=== PATIENT | male | born 1980 | race African-American/Black ===

== ENCOUNTER 2017-06-26 13:50 | Inpatient (IN) | payer OTHER ==
[~2017-06-26] VITALS: Ht 177.8 cm; Wt 72.6 kg
[2017-06-26] VITALS (7 sets, daily range): BP systolic 99–176; BP diastolic 55–96; PULSE 94–107; RESP 12–22; TEMP 98–98.4; O2SAT 98–100
[~2017-06-26 13:50] MED LIST: ERYT250 PO; GLIP5 PO; GLUCTAB PO; OMPR20CCR PO; PROC10TA4 PO; ZOFR4TAB3 PO
[2017-06-26 15:18] LABS: ALBUMIN 3.4 GM/DL (3.4-5.0); ALKALINE PHOSPHATASE 93 U/L (45-117); ALT (GPT) 24 U/L (12-78); AST (GOT) 19 U/L (15-37); BLOOD UREA NITROGEN 25 MG/DL (7-18); CALCIUM 8.9 MG/DL (8.5-10.1); CHLORIDE 101 MEQ/L (98-107); CREATININE 0.94 MG/DL (0.60-1.30); GLOMERULAR FILTRATION RATE 108 ML/MIN (>89); LIPASE 58 U/L (73-393); SODIUM (NA) 136 MEQ/L (136-145); TOTAL BILIRUBIN ADULT 0.5 MG/DL (0.2-1.0); TOTAL PROTEIN 8.2 GM/DL (6.4-8.2)
[2017-06-26 15:21] LABS: GLUCOSE,RANDOM 480 MG/DL (74-106)
[2017-06-26 15:26] LABS: HEMATOCRIT 39.3 % (39.0-51.0); HEMOGLOBIN 13.3 GM/DL (13.0-17.0); MEAN CELL VOLUME 85.5 FL (80.0-100.0); MEAN CORPUSCULAR HEMOGLOBIN 28.9 PG (27.0-34.0); MEAN CORPUSCULAR HGB CONC 33.8 % (32.0-36.0); MEAN PLATELET VOLUME 9.3 FL (7.0-11.0); PLATELET COUNT 302 TH/MM3 (150-450); RED BLOOD COUNT 4.59 MIL/MM3 (4.50-5.90); RED CELL DISTRIBUTION WIDTH 12.5 % (11.6-17.2); WHITE BLOOD COUNT 24.3 TH/MM3 (4.0-11.0)
[2017-06-26 16:05] LABS: BANDS 16 % (0-6); LYMPHOCYTES 3 % (9-44); MONOCYTES 2 % (0-8); NEUTROPHIL # MANUAL DIFF 23.1 TH/MM3 (1.8-7.7); POLYS (SEG NEUTROPHILS) 79 % (16-70)
[2017-06-26] MEDS ORDERED: METF500T PO (16:24)
[2017-06-26] MEDS ORDERED: SODIUM CHLOR 0.9% 1000 ML INJ 1,000 ML IV ONE ×2 (16:30)
[2017-06-26] MEDS ORDERED: LOPERAMIDE HCL 2 MG CAP PO ONE (16:45)
[2017-06-26] MEDS ORDERED: ONDANSETRON HCL 4 MG/2 ML VIAL IV PUSH ONE (16:45)
[2017-06-26] MEDS: DEXT 5%-NACL 0.9% 1000 ML INJ 1,000 ML IV SCH ×2 (17:43→21:02)
[2017-06-26] MEDS ORDERED: INSULIN HUMAN REGULAR 1,000 UNITS/10 ML VIAL IV PUSH ONE (17:45)
[2017-06-26] MEDS ORDERED: SODIUM PHOSPHATE INJ 15 MMOL in SODIUM CHLORIDE 0.9% INJ 100 ML IV PRN (17:45)
[2017-06-26] MEDS ORDERED: POTASSIUM CHLOR 40 MEQ PREMIX 100 ML IV PRN ×2 (17:45)
[2017-06-26] MEDS ORDERED: SODIUM BICARBONATE 8.4% SOLN 50 MEQ/50 ML VIAL IV PUSH PRN ×2 (17:45)
[2017-06-26] MEDS ORDERED: INSULIN REGULAR (IV INFUSION) 100 UNITS in SODIUM CHLORIDE 0.9% INJ 99 ML IV PRN (17:45)
[2017-06-26] MEDS ORDERED: POTASSIUM CHLOR 20 MEQ PREMIX 100 ML IV PRN ×6 (17:45)
[2017-06-26] MEDS ORDERED: SODIUM CHLORIDE 0.9% FLUSH 10 ML FLUSH IV FLUSH PRN (18:45)
[2017-06-26] MEDS ORDERED: BISACODYL 10 MG SUPP RECTAL PRN (18:45)
[2017-06-26] MEDS ORDERED: NALOXONE HCL 0.4 MG/ML AMP IV PUSH PRN (18:45)
[2017-06-26] MEDS ORDERED: LACTULOSE SYRUP 20 GM/30 ML CUP PO PRN (18:45)
[2017-06-26] MEDS: SODIUM CHLOR 0.9% 1000 ML INJ 1,000 ML IV SCH ×3 (18:48→22:13)
--- NOTE | 2017-06-26 18:52 | PD ---
HPI Chief Complaint: GI Complaint Time Seen by Provider: 16:23 Travel History International Travel<30 days: No Contact w/Intl Traveler<30days: No Traveled to known affect area: No History of Present Illness HPI Is a 37-year-old man who presents to the emergency department with nausea vomiting diarrhea, fevers. He's been having shakes and chills all week. No definite fevers. She would nausea vomiting and diarrhea today. Some mild abdominal pain. History of diabetes. His only on metformin now. Denies any other associated symptoms. No other complaints. History Past Medical History Narrative Medical Diabetes Past Surgical History Surgical History: No Previous Surgery Social History Alcohol Use: No Tobacco Use: No Allergies-Medications (Allergen,Severity, Reaction): Coded Allergies: No Known Allergies (Unverified Allergy, Unknown, 06/26/17) Reported Meds & Prescriptions Reported Meds & Active Scripts Active Review of Systems Except as stated in HPI: all other systems reviewed are Neg Physical Exam Narrative GENERAL: 37 year-old man, looks a little bit ill but nontoxic. SKIN: Focused skin assessment warm/dry. HEAD: Atraumatic. Normocephalic. EYES: Pupils equal and round. No scleral icterus. No injection or drainage. ENT: No nasal bleeding or discharge. Mucous membranes pink and moist. NECK: Trachea midline. No JVD. CARDIOVASCULAR: Heart rate rapid. No murmurs. RESPIRATORY: No accessory muscle use. Clear to auscultation. Breath sounds equal bilaterally. GASTROINTESTINAL: Abdomen is flat and soft. No significant tenderness. MUSCULOSKELETAL: No obvious deformities. No clubbing. No cyanosis. No edema. NEUROLOGICAL: Awake and alert. No obvious cranial nerve deficits. Motor grossly within normal limits. Normal speech. PSYCHIATRIC: Appropriate mood and affect; insight and judgment normal. Data Data Last Documented VS Vital Signs Date Time Temp Pulse Resp B/P (MAP) Pulse Ox O2 Delivery O2 Flow Rate FiO2 06/26/17 16:30 94 12 176/96 (122) 98 Room Air 06/26/17 13:52 98.4 Orders Orders Complete Blood Count With Diff (06/26/17 13:58) Comprehensive Metabolic Panel (06/26/17 13:58) Lipase (06/26/17 13:58) Blood Gas Venous (Vbg) (06/26/17 16:24) Beta Hydroxybutyrate (Acetone) (06/26/17 16:24) Sodium Chlor 0.9% 1000 Ml Inj (Ns 1000 M (06/26/17 16:30) Sodium Chlor 0.9% 1000 Ml Inj (Ns 1000 M (06/26/17 16:30) Loperamide (Imodium) (06/26/17 16:45) Ondansetron Inj (Zofran Inj) (06/26/17 16:45) Liquefied Natural Gas Plant Operator / Telemetry [id number] (06/26/17 17:43) ^ Insert Iv (06/26/17 17:43) Diet Npo (06/26/17 Dinner) Sodium Chlor 0.9% 1000 Ml Inj (Ns 1000 M (06/26/17 17:43) Dext 5%-Nacl 0.9% 1000 Ml Inj (D5w-Ns 10 (06/26/17 17:43) Insulin Human Regular Inj (Novolin R Inj (06/26/17 17:45) Insulin Regular (Iv Infusion) (Novolin R (06/26/17 17:45) Potassium Chlor 40 Meq Premix (Kcl 40 Me (06/26/17 17:45) Potassium Chlor 40 Meq Premix (Kcl 40 Me (06/26/17 17:45) Potassium Chlor 20 Meq Premix (Kcl 20 Me (06/26/17 17:45) Potassium Chlor 20 Meq Premix (Kcl 20 Me (06/26/17 17:45) Potassium Chlor 20 Meq Premix (Kcl 20 Me (06/26/17 17:45) Potassium Chlor 20 Meq Premix (Kcl 20 Me (06/26/17 17:45) Potassium Chlor 20 Meq Premix (Kcl 20 Me (06/26/17 17:45) Potassium Chlor 20 Meq Premix (Kcl 20 Me (06/26/17 17:45) Sodium Bicarbonate 8.4% Inj (Sodium Bica (06/26/17 17:45) Sodium Bicarbonate 8.4% Inj (Sodium Bica (06/26/17 17:45) Sodium Phosphate Inj (Sodium Phosphate I (06/26/17 17:45) Hemoglobin (Hgb) A1c (06/26/17 17:43) Urinalysis - C+S If Indicated (06/26/17 17:43) Basic Metabolic Panel (Bmp) (06/26/17 22:43) Basic Metabolic Panel (Bmp) (06/27/17 04:43) Basic Metabolic Panel (Bmp) (06/27/17 10:43) Basic Metabolic Panel (Bmp) (06/27/17 16:43) Magnesium (Mg) (06/26/17 22:43) Magnesium (Mg) (06/27/17 04:43) Magnesium (Mg) (06/27/17 10:43) Magnesium (Mg) (06/27/17 16:43) Phosphorus (Po4) (06/26/17 22:43) Phosphorus (Po4) (06/27/17 04:43) Phosphorus (Po4) (06/27/17 10:43) Phosphorus (Po4) (06/27/17 16:43) Beta Hydroxybutyrate (Acetone) (06/27/17 04:43) Beta Hydroxybutyrate (Acetone) (06/27/17 16:43) Admit Order (Ed Use Only) (06/26/17 ) Labs Laboratory Tests Test 06/26/17 14:17 06/26/17 16:25 06/26/17 16:39 White Blood Count 24.3 TH/MM3 Red Blood Count 4.59 MIL/MM3 Hemoglobin 13.3 GM/DL Hematocrit 39.3 % Mean Corpuscular Volume 85.5 FL Mean Corpuscular Hemoglobin 28.9 PG Mean Corpuscular Hemoglobin Concent 33.8 % Red Cell Distribution Width 12.5 % Platelet Count 302 TH/MM3 Mean Platelet Volume 9.3 FL CBC Comment AUTO DIFF Differential Total Cells Counted 100 Neutrophils % (Manual) 79 % Band Neutrophils % 16 % Lymphocytes % 3 % Monocytes % 2 % Neutrophils # (Manual) 23.1 TH/MM3 Differential Comment FINAL DIFF MANUAL Platelet Morphology Comment NORMAL Blood Urea Nitrogen 25 MG/DL Creatinine 0.94 MG/DL Random Glucose 480 MG/DL Total Protein 8.2 GM/DL Albumin 3.4 GM/DL Calcium Level 8.9 MG/DL Alkaline Phosphatase 93 U/L Aspartate Amino Transf (AST/SGOT) 19 U/L Alanine Aminotransferase (ALT/SGPT) 24 U/L Total Bilirubin 0.5 MG/DL Sodium Level 136 MEQ/L Potassium Level 4.5 MEQ/L Chloride Level 101 MEQ/L Carbon Dioxide Level 20.0 MEQ/L Anion Gap 15 MEQ/L Estimat Glomerular Filtration Rate 108 ML/MIN Lipase 58 U/L B-Hydroxybutyrate 5.10 MMOL/L Blood Gas Puncture Site IV Blood Gas Patient Temperature 98.6 Venous Blood pH 7.29 Venous Blood Partial Pressure CO2 39 mmHg Venous Blood Partial Pressure O2 47 mmHg Venous Blood HCO3 18 mmol/L Venous Blood Oxygen Saturation 71 % Venous Blood Oxygen Content 13.3 Vol % Venous Blood Base Excess -7.1 mmol/L Oxygen Delivery Device ROOM AIR Blood Gas Inspired Oxygen 21 % MDM Medical Decision Making Medical Screen Exam Complete: Yes Emergency Medical Condition: Yes Interpretation(s) Laboratory Tests Test 06/26/17 14:17 06/26/17 16:25 06/26/17 16:39 White Blood Count 24.3 TH/MM3 Red Blood Count 4.59 MIL/MM3 Hemoglobin 13.3 GM/DL Hematocrit 39.3 % Mean Corpuscular Volume 85.5 FL Mean Corpuscular Hemoglobin 28.9 PG Mean Corpuscular Hemoglobin Concent 33.8 % Red Cell Distribution Width 12.5 % Platelet Count 302 TH/MM3 Mean Platelet Volume 9.3 FL CBC Comment AUTO DIFF Differential Total Cells Counted 100 Neutrophils % (Manual) 79 % Band Neutrophils % 16 % Lymphocytes % 3 % Monocytes % 2 % Neutrophils # (Manual) 23.1 TH/MM3 Differential Comment FINAL DIFF MANUAL Platelet Morphology Comment NORMAL Blood Urea Nitrogen 25 MG/DL Creatinine 0.94 MG/DL Random Glucose 480 MG/DL Total Protein 8.2 GM/DL Albumin 3.4 GM/DL Calcium Level 8.9 MG/DL Alkaline Phosphatase 93 U/L Aspartate Amino Transf (AST/SGOT) 19 U/L Alanine Aminotransferase (ALT/SGPT) 24 U/L Total Bilirubin 0.5 MG/DL Sodium Level 136 MEQ/L Potassium Level 4.5 MEQ/L Chloride Level 101 MEQ/L Carbon Dioxide Level 20.0 MEQ/L Anion Gap 15 MEQ/L Estimat Glomerular Filtration Rate 108 ML/MIN Lipase 58 U/L B-Hydroxybutyrate 5.10 MMOL/L Blood Gas Puncture Site IV Blood Gas Patient Temperature 98.6 Venous Blood pH 7.29 Venous Blood Partial Pressure CO2 39 mmHg Venous Blood Partial Pressure O2 47 mmHg Venous Blood HCO3 18 mmol/L Venous Blood Oxygen Saturation 71 % Venous Blood Oxygen Content 13.3 Vol % Venous Blood Base Excess -7.1 mmol/L Oxygen Delivery Device ROOM AIR Blood Gas Inspired Oxygen 21 % Differential Diagnosis DKA, hyperglycemia, infection, other Narrative Course Medical decision making 37-year-old man who has nausea vomiting diarrhea, loose watery stools, with elevated blood sugar. Labs are suggestive of mild DKA. This is likely sequela of gastroenteritis, dehydration, possibly medication noncompliance. Patient's only on metformin, is been diagnosed with insulin-dependent diabetes. Looks overall well. We'll plan IV fluids, insulin, DKA protocol. Spoke with Dr. Cardenas, will admit patient. Diagnosis Primary Impression: DKA (diabetic ketoacidoses) Admitting Information Admitting Physician Requests: Admit Kerwin Dumont MD Jun 26, 2017 18:52
--- NOTE | 2017-06-26 18:56 | HHI.HP ---
HPI Service [facility] Hospitalists Primary Care Physician Zaira Anglin MD Admission Diagnosis mild DKA Chief Complaint: persistent vomiting ,abdominal pain all day Travel History International Travel<30 Days: No Contact w/Intl Traveler <30 Da: No Traveled to Known Affected Are: No History of Present Illness 37 y/o black male with history of diabetes was on metformin but non complaint and stopped med months ago ,previous to that was on Lantus ,patient states has been doing well but has had gastroparesis symptoms and chronic diarrhea ,came to er with persistent vomit and had blood glucose at 400 with mild DKA on lab work and will be admitted start on insulin drip and IV fluid ,patient also has elevated WBC count ,denies fever. Review of Systems Gastrointestinal: COMPLAINS OF: Abdominal pain, Nausea, Vomiting Past Family Social History Past Medical History diabetes ,gastroparesis diarrhea Past Surgical History none Reported Medications none stopped his metformin Allergies: Coded Allergies: No Known Allergies (Unverified Allergy, Unknown, 06/26/17) Social History NS, did drink in past none over 1 year Physical Exam Vital Signs Vital Signs Date Time Temp Pulse Resp B/P (MAP) Pulse Ox O2 Delivery O2 Flow Rate FiO2 06/26/17 16:30 94 12 176/96 (122) 98 Room Air 06/26/17 13:52 98.4 100 20 170/76 (107) 100 Room Air Physical Exam GENERAL: This is a well-nourished, well-developed patient, in no apparent distress. SKIN: No rashes, ecchymoses or lesions. Cool and dry. HEAD: Atraumatic. Normocephalic. No temporal or scalp tenderness. EYES: Pupils equal round and reactive. Extraocular motions intact. No scleral icterus. No injection or drainage. ENT: Nose without bleeding, purulent drainage or septal hematoma. Throat without erythema, tonsillar hypertrophy or exudate. Uvula midline. Airway patent. NECK: Trachea midline. No JVD or lymphadenopathy. Supple, nontender, no meningeal signs. CARDIOVASCULAR: Regular rate and rhythm without murmurs, gallops, or rubs. RESPIRATORY: Clear to auscultation. Breath sounds equal bilaterally. No wheezes , rales, or rhonchi. GASTROINTESTINAL: Abdomen soft, non-tender, nondistended. No hepato-splenomegaly , or palpable masses. No guarding. MUSCULOSKELETAL: Extremities without clubbing, cyanosis, or edema. No joint tenderness, effusion, or edema noted. No calf tenderness. Negative Homans sign bilaterally. NEUROLOGICAL: Awake and alert. Cranial nerves II through XII intact. Motor and sensory grossly within normal limits. Five out of 5 muscle strength in all muscle groups. Normal speech. Laboratory Laboratory Tests Test 06/26/17 14:17 06/26/17 16:25 06/26/17 16:39 White Blood Count 24.3 Red Blood Count 4.59 Hemoglobin 13.3 Hematocrit 39.3 Mean Corpuscular Volume 85.5 Mean Corpuscular Hemoglobin 28.9 Mean Corpuscular Hemoglobin Concent 33.8 Red Cell Distribution Width 12.5 Platelet Count 302 Mean Platelet Volume 9.3 CBC Comment AUTO DIFF Differential Total Cells Counted 100 Neutrophils % (Manual) 79 Band Neutrophils % 16 Lymphocytes % 3 Monocytes % 2 Neutrophils # (Manual) 23.1 Differential Comment FINAL DIFF MANUAL Platelet Morphology Comment NORMAL Blood Urea Nitrogen 25 Creatinine 0.94 Random Glucose 480 Total Protein 8.2 Albumin 3.4 Calcium Level 8.9 Alkaline Phosphatase 93 Aspartate Amino Transf (AST/SGOT) 19 Alanine Aminotransferase (ALT/SGPT) 24 Total Bilirubin 0.5 Sodium Level 136 Potassium Level 4.5 Chloride Level 101 Carbon Dioxide Level 20.0 Anion Gap 15 Estimat Glomerular Filtration Rate 108 Lipase 58 B-Hydroxybutyrate 5.10 Blood Gas Puncture Site IV Blood Gas Patient Temperature 98.6 Venous Blood pH 7.29 Venous Blood Partial Pressure CO2 39 Venous Blood Partial Pressure O2 47 Venous Blood HCO3 18 Venous Blood Oxygen Saturation 71 Venous Blood Oxygen Content 13.3 Venous Blood Base Excess -7.1 Oxygen Delivery Device ROOM AIR Blood Gas Inspired Oxygen 21 Result Diagram: 06/26/17 1417 06/26/17 1417 Course in er started on iv fluid and insulin drip Caprini VTE Risk Assessment Caprini VTE Risk Assessment: No/Low Risk (score <= 1) Caprini Risk Assessment Model Point Value = 1 Point Value = 2 Point Value = 3 Point Value = 5 Age 41-60 Minor surgery BMI > 25 kg/m2 Swollen legs Varicose veins or History of unexplained or recurrent spontaneous Oral contraceptives or hormone replacement Sepsis (< 1 month) Serious lung disease, including pneumonia (< 1 month) Abnormal pulmonary function Acute myocardial infarction Congestive heart failure (< 1 month) History of inflammatory bowel disease Medical patient at bed rest Age 61-74 Arthroscopic surgery Major open surgery (> 45 min) Laparoscopic surgery (> 45 min) Malignancy Confined to bed (> 72 hours) Immobilizing plaster cast Central venous access Age >= 75 History of VTE Family history of VTE Factor V Leiden Prothrombin [id number] Lupus anticoagulant Anticardiolipin antibodies Elevated serum homocysteine Heparin-induced thrombocytopenia Other congenital or acquired thrombophilia Stroke (< 1 month) Elective arthroplasty Hip, pelvis, or leg fracture Acute spinal cord injury (< 1 month) Prophylaxis Regimen Total Risk Factor Score Risk Level Prophylaxis Regimen 0-1 Low Early ambulation 2 Moderate Order ONE of the following: *Sequential Compression Device (SCD) *Heparin 5000 units SQ BID 3-4 Higher Order ONE of the following medications: *Heparin 5000 units SQ TID *Enoxaparin/Lovenox 40 mg SQ daily (WT < 150 kg, CrCl > 30 mL/min) *Enoxaparin/Lovenox 30 mg SQ daily (WT < 150 kg, CrCl > 10-29 mL/min) *Enoxaparin/Lovenox 30 mg SQ BID (WT < 150 kg, CrCl > 30 mL/min) AND/OR *Sequential Compression Device (SCD) 5 or more Highest Order ONE of the following medications: *Heparin 5000 units SQ TID (Preferred with Epidurals) *Enoxaparin/Lovenox 40 mg SQ daily (WT < 150 kg, CrCl > 30 mL/min) *Enoxaparin/Lovenox 30 mg SQ daily (WT < 150 kg, CrCl > 10-29 mL/min) *Enoxaparin/Lovenox 30 mg SQ BID (WT < 150 kg, CrCl > 30 mL/min) AND *Sequential Compression Device (SCD) Assessment and Plan Problem List: (1) DKA (diabetic ketoacidoses) ICD Codes: E13.10 - Other specified diabetes mellitus with ketoacidosis without coma Status: Acute Plan[place] [facility] [place] and IV fluids (2) Nausea & vomiting ICD Codes: R11.2 - Nausea & vomiting Status: Acute Plan: zofran add protonix IV (3) Leukocytosis ICD Codes: D72.829 - Elevated white blood cell count, unspecified Plan: may be related to DKA will recheck labs start on zoysn for now blood cultures ordered chest xray ordered non contrast CT abdomen Assessment and Plan further plan as case develops Code Status full Discussed Condition With patient Physician Certification 2 Midnight Certification Type: Admission for Inpatient Services Order for Inpatient Services The services are ordered in accordance with Medicare regulations or non- Medicare payer requirements, as applicable. In the case of services not specified as inpatient-only, they are appropriately provided as inpatient services in accordance with the 2-midnight benchmark. Estimated LOS (days): 3 3 days is the estimated time the patient will need to remain in the hospital, assuming treatment plan goals are met and no additional complications. Post-Hospital Plan: Home Eduar Cardenas MD Jun 26, 2017 18:55
--- NOTE | 2017-06-26 19:45 | RADRPT ---
EXAM DATE/TIME: 06/26/2017 19:05 [facility] COMPARISON: CT ABDOMEN & PELVIS W CONTRAST, January 26, 2015, 19:03. INDICATIONS : Vomiting,diarrhea today ORAL CONTRAST: No oral contrast ingested. RADIATION DOSE: 6.64 CTDIvol (mGy) MEDICAL HISTORY : Diabetes SURGICAL HISTORY : None. ENCOUNTER: Initial ACUITY: 1 day PAIN SCALE: 0/10 LOCATION: abdomen TECHNIQUE: Volumetric scanning of the abdomen and pelvis was performed. Using automated exposure control and adjustment of the mA and/or kV according to patient size, radiation dose was kept as low as reasonably achievable to obtain optimal diagnostic quality images. DICOM format image data is av ailable electronically for review and comparison. FINDINGS: CT Abdomen: The liver, spleen, pancreas, kidneys, adrenals are unremarkable. There is no evidence for any appreciable pathological adenopathy, free fluid, or bowel obstruction. There is no evidence for any stones in the kidneys or the course of the ureters on either side. There is no hydronephrosis. CT pelvis: There is no evidence for mass, abscess formation, or any significant adenopathy within the pelvis. CONCLUSION: Essentially unremarkable study. Sydni Schaefer MD on June 26, 2017 at 19:39 Board Certified Radiologist. This report was verified electronically.
[2017-06-26] MEDS: PIPERACIL-TAZO 3.375 GM PREMIX 50 ML IV SCH (20:50)
[2017-06-26] MEDS: PROCHLORPERAZINE INJ 10 MG/2 ML VIAL IV PUSH PRN (20:55)
[2017-06-26] MEDS: SODIUM CHLORIDE 0.9% FLUSH 10 ML FLUSH IV FLUSH SCH (21:00)
[2017-06-26] MEDS ORDERED: SENNOSIDES 8.6 MG TAB PO PRN (21:00)
[2017-06-26] MEDS ORDERED: MAGNESIUM HYDROXIDE SUSP 30 ML CUP PO PRN (21:00)
[2017-06-26] MEDS: PANTOPRAZOLE SODIUM 40 MG VIAL IV PUSH SCH (21:00)
[2017-06-26] MEDS: DOCUSATE SODIUM 50 MG/SENNA 8.6 MG TAB PO SCH (21:00)
[2017-06-26 21:55] LABS: BILIRUBIN, URINE NEG (NEG); BLOOD, URINE TRACE (NEG); GLUCOSE,URINE 1000 mg/dL (NEG); KETONE, URINE 80 mg/dL (NEG); NITRITE,URINE NEG (NEG); PH, URINE 5.5 (5.0-8.5); URINE COLOR LIGHT-YELLOW (YELLW/STRAW); URINE LEUKOCYTE ESTERASE NEG (NEG)
[2017-06-26] MEDS ORDERED: ONDANSETRON HCL 4 MG/2 ML VIAL IVP PRN (23:00)
[2017-06-26] MEDS ORDERED: CHLORHEXIDINE GLUCONATE 2 % 1 PACK (2 CLOTHS)(extra cloths) TOPICAL PRN (23:15)
[2017-06-26] MEDS: CHLORHEXIDINE GLUCONATE 2 % 1 PACK (2 CLOTHS)(taper/protocol) TOPICAL SCH (23:18)
[2017-06-27] VITALS (12 sets, daily range): BP systolic 111–136; BP diastolic 62–81; PULSE 80–101; RESP 16–24; TEMP 97–98.5; O2SAT 97–100
[2017-06-27 00:45] LABS: BICARBONATE 25.1 MEQ/L (21.0-32.0); BLOOD UREA NITROGEN 23 MG/DL (7-18); CHLORIDE 114 MEQ/L (98-107); CREATININE 0.88 MG/DL (0.60-1.30); GLOMERULAR FILTRATION RATE 117 ML/MIN (>89); GLUCOSE,RANDOM 177 MG/DL (74-106); MAGNESIUM 1.8 MG/DL (1.5-2.5); PHOSPHORUS 1.7 MG/DL (2.5-4.9); SODIUM (NA) 146 MEQ/L (136-145)
[2017-06-27] MEDS: DEXT 5%-NACL 0.9% 1000 ML INJ 1,000 ML IV SCH (01:23)
[2017-06-27] MEDS: SODIUM CHLOR 0.9% 1000 ML INJ 1,000 ML IV SCH (01:23)
[2017-06-27] MEDS: PIPERACIL-TAZO 3.375 GM PREMIX 50 ML IV SCH ×4 (01:24→19:43)
[2017-06-27] MEDS ORDERED: GLUCAGON 1 MG/ML VIAL OTHER PRN (01:45)
[2017-06-27] MEDS ORDERED: DEXTROSE 50% IN WATER 50 ML VIAL(D50) IV PUSH PRN (01:45)
[2017-06-27] MEDS ORDERED: INSULIN DETEMIR 100 UNITS/ML VIAL SQ ONE (01:45)
[2017-06-27] MEDS: MEDIUM DOSE INSULIN NOVOLOG SUPPLEMENTAL SCALE SQ SCH ×6 (02:00→22:20)
[2017-06-27 05:44] LABS: HEMATOCRIT 33.5 % (39.0-51.0); HEMOGLOBIN 11.3 GM/DL (13.0-17.0); MEAN CELL VOLUME 84.7 FL (80.0-100.0); MEAN CORPUSCULAR HEMOGLOBIN 28.6 PG (27.0-34.0); MEAN CORPUSCULAR HGB CONC 33.7 % (32.0-36.0); MEAN PLATELET VOLUME 9.4 FL (7.0-11.0); PLATELET COUNT 261 TH/MM3 (150-450); RED BLOOD COUNT 3.95 MIL/MM3 (4.50-5.90); RED CELL DISTRIBUTION WIDTH 12.9 % (11.6-17.2); WHITE BLOOD COUNT 20.7 TH/MM3 (4.0-11.0)
[2017-06-27 06:09] LABS: BICARBONATE 21.7 MEQ/L (21.0-32.0); CALCIUM 7.9 MG/DL (8.5-10.1); CREATININE 0.69 MG/DL (0.60-1.30); MAGNESIUM 1.8 MG/DL (1.5-2.5); PHOSPHORUS 2.9 MG/DL (2.5-4.9)
[2017-06-27 07:21] LABS: BANDS 5 % (0-6); LYMPHOCYTES 5 % (9-44); MONOCYTES 3 % (0-8); POLYS (SEG NEUTROPHILS) 87 % (16-70)
[2017-06-27] MEDS: DOCUSATE SODIUM 50 MG/SENNA 8.6 MG TAB PO SCH ×2 (08:50→19:43)
[2017-06-27] MEDS: SODIUM CHLORIDE 0.9% FLUSH 10 ML FLUSH IV FLUSH SCH ×2 (08:50→19:43)
--- NOTE | 2017-06-27 10:33 | RADRPT ---
EXAM DATE/TIME: 06/27/2017 09:46 [facility] COMPARISON: No previous studies available for comparison. INDICATIONS : Cough, no shortness of breath, no chest pain, nausea and vomiting MEDICAL HISTORY : diabetes SURGICAL HISTORY : None. ENCOUNTER: Subsequent ACUITY: 1 day PAIN SCORE: 0/10 LOCATION: Bilateral chest FINDINGS: A single view of the chest demonstrates the lungs to be symmetrically aerated without evidence of mas s, infiltrate or effusion. The cardiomediastinal contours are unremarkable. Osseous structures are intact. CONCLUSION: 1. No acute cardiopulmonary disease. Francis Woodson MD on June 27, 2017 at 10:29 Board Certified Radiologist. This report was verified electronically.
[2017-06-27 13:08] LABS: BICARBONATE 23.4 MEQ/L (21.0-32.0); CALCIUM 8.3 MG/DL (8.5-10.1); CREATININE 0.79 MG/DL (0.60-1.30); MAGNESIUM 1.8 MG/DL (1.5-2.5)
[2017-06-27 13:10] LABS: PHOSPHORUS 2.1 MG/DL (2.5-4.9)
[2017-06-27 16:06] LABS: HEMOGLOBIN A1C 14.8 % (4.3-6.0)
[2017-06-27 17:55] LABS: ALBUMIN 2.5 GM/DL (3.4-5.0); BICARBONATE 26.3 MEQ/L (21.0-32.0); BLOOD UREA NITROGEN 21 MG/DL (7-18); CALCIUM 8.1 MG/DL (8.5-10.1); CHLORIDE 111 MEQ/L (98-107); CREATININE 0.74 MG/DL (0.60-1.30); GLOMERULAR FILTRATION RATE 143 ML/MIN (>89); GLUCOSE,RANDOM 130 MG/DL (74-106); SODIUM (NA) 143 MEQ/L (136-145)
[2017-06-27 17:56] LABS: AST (GOT) 15 U/L (15-37)
[2017-06-27 17:59] LABS: ALKALINE PHOSPHATASE 67 U/L (45-117); ALT (GPT) 17 U/L (12-78); TOTAL BILIRUBIN ADULT 0.2 MG/DL (0.2-1.0); TOTAL PROTEIN 6.5 GM/DL (6.4-8.2)
--- NOTE | 2017-06-27 19:28 | HHI.PR ---
Subjective Remarks No new complaints. Pt eager for discharge out of the ICU. Further d/w pt. He has NOT been compliant with outpt DM regimen. Objective Vitals Vital Signs Date Time Temp Pulse Resp B/P (MAP) Pulse Ox O2 Delivery O2 Flow Rate FiO2 06/27/17 17:00 84 21 111/74 (86) 06/27/17 16:00 97.5 82 17 114/72 (86) 06/27/17 15:00 80 16 134/74 (94) 06/27/17 12:00 97.5 93 20 119/71 (87) 98 06/27/17 08:00 98.5 101 20 125/65 (85) 97 06/27/17 06:00 96 06/27/17 04:00 98 06/27/17 04:00 98.0 101 24 120/80 (93) 98 06/27/17 04:00 101 06/27/17 02:00 88 06/27/17 00:00 88 06/27/17 00:00 98.0 88 21 119/62 (81) 98 06/26/17 23:50 99 06/26/17 22:00 99 06/26/17 21:33 98.0 107 22 99/55 (70) 98 06/26/17 20:34 06/26/17 19:56 106 16 130/70 (90) 99 Room Air 06/27/17 06/27/17 06/28/17 15:00 23:00 07:00 Intake Total 100 ml 900 ml Output Total 500 ml Balance 100 ml 400 ml Intake Oral 900 ml IV Total 100 ml Output Urine Total 500 ml Result Diagram: 06/27/17 0423 06/27/17 1647 Imaging Last Impressions Chest X-Ray 06/27/17 0000 Signed Impressions: Service Date/Time: June 09:46 - CONCLUSION: 1. No acute cardiopulmonary disease. Francis Woodson MD Abdomen/Pelvis CT 06/26/17 0000 Signed Impressions: Service Date/Time: Monday, June 26, 2017 19:05 - CONCLUSION: Essentially unremarkable study. Sydni Schaefer MD Objective Remarks GENERAL: This is a well-nourished, well-developed patient, in no apparent distress. CARDIOVASCULAR: Regular rate and rhythm without murmurs, gallops, or rubs. RESPIRATORY: Clear to auscultation. Breath sounds equal bilaterally. No wheezes , rales, or rhonchi. GASTROINTESTINAL: Abdomen soft, non-tender, nondistended. Normal active bowel sounds MUSCULOSKELETAL: Extremities without clubbing, cyanosis, or edema. NEURO: Alert & Oriented x4 to person, place, time, situation. Moves all ext x4 A/P Problem List: (1) DKA (diabetic ketoacidoses) ICD Codes: E13.10 - Other specified diabetes mellitus with ketoacidosis without coma Status: Resolved Plan: - pt off insulin drip (2) Nausea & vomiting ICD Codes: R11.2 - Nausea & vomiting Status: Resolved Plan: zofran add protonix IV (3) Leukocytosis ICD Codes: D72.829 - Elevated white blood cell count, unspecified Plan: - may be related to DKA - No nidus of infection - UA --> no infection - CXR (06/27/16) --> no infiltrate - continue zosyn for now - repeat CBC in AM (4) DM (diabetes mellitus), type 2, uncontrolled ICD Codes: E11.65 - DM (diabetes mellitus), type 2, uncontrolled Status: Acute Plan: - HgA1C 14.8 (06/27/16) - Pt admits to NOT taking his DM medications - resume glucophage at 500mg BID, observe response - SSI - obtain fasting lipid panel in AM - Pt will need f/u with CP PCP, Dr. Anglin, upon discharge - Pt will need outpt referal to [facility] Store Team Leader outpt - obtain consultation with [place] religious educator - DVT prophylaxis with SCDs Problem Qualifiers (1) DKA (diabetic ketoacidoses): Qualified Codes: E11.10 - Type 2 diabetes mellitus with ketoacidosis without coma (2) DM (diabetes mellitus), type 2, uncontrolled: Qualified Codes: E11.8 - Type 2 diabetes mellitus with unspecified complications; E11.65 - Type 2 diabetes mellitus with hyperglycemia Peter Romero DO Jun 27, 2017 19:28
[2017-06-27] MEDS: PANTOPRAZOLE SODIUM 40 MG VIAL IV PUSH SCH (19:42)
[2017-06-27] MEDS: metFORMIN HCL 500 MG TAB PO SCH (19:42)
[2017-06-28] VITALS (9 sets, daily range): BP systolic 112–182; BP diastolic 67–85; PULSE 81–109; RESP 16–22; TEMP 96.6–97.7; O2SAT 92–100
[2017-06-28] MEDS: CHLORHEXIDINE GLUCONATE 2 % 1 PACK (2 CLOTHS)(taper/protocol) TOPICAL SCH (01:35)
[2017-06-28] MEDS: PIPERACIL-TAZO 3.375 GM PREMIX 50 ML IV SCH ×2 (01:58→09:25)
[2017-06-28] MEDS: MEDIUM DOSE INSULIN NOVOLOG SUPPLEMENTAL SCALE SQ SCH ×6 (01:58→20:28)
[2017-06-28 07:43] LABS: AUTOMATED NEUTROPHIL # 8.3 TH/MM3 (1.8-7.7); BASOPHIL % 0.2 % (0.0-2.0); EOSINOPHIL # 0.2 TH/MM3 (0-0.4); EOSINOPHIL % 1.8 % (0.0-4.0); HEMATOCRIT 33.4 % (39.0-51.0); HEMOGLOBIN 11.5 GM/DL (13.0-17.0); LYMPH % 11.4 % (9.0-44.0); LYMPHOCYTE # 1.2 TH/MM3 (1.0-4.8); MEAN CELL VOLUME 84.2 FL (80.0-100.0); MEAN CORPUSCULAR HEMOGLOBIN 28.9 PG (27.0-34.0); MEAN CORPUSCULAR HGB CONC 34.4 % (32.0-36.0); MEAN PLATELET VOLUME 8.3 FL (7.0-11.0); MONO % 6.5 % (0.0-8.0); MONOCYTE # 0.7 TH/MM3 (0-0.9); NEUT % 80.1 % (16.0-70.0); PLATELET COUNT 263 TH/MM3 (150-450); RED BLOOD COUNT 3.96 MIL/MM3 (4.50-5.90); RED CELL DISTRIBUTION WIDTH 12.9 % (11.6-17.2); WHITE BLOOD COUNT 10.4 TH/MM3 (4.0-11.0)
[2017-06-28 08:11] LABS: BICARBONATE 25.5 MEQ/L (21.0-32.0); CALCIUM 8.1 MG/DL (8.5-10.1); CREATININE 0.64 MG/DL (0.60-1.30)
[2017-06-28 08:12] LABS: CHOLESTEROL/ HDL RATIO 4.04 RATIO
[2017-06-28] MEDS: SODIUM CHLORIDE 0.9% FLUSH 10 ML FLUSH IV FLUSH SCH ×2 (09:00→20:15)
[2017-06-28] MEDS: DOCUSATE SODIUM 50 MG/SENNA 8.6 MG TAB PO SCH ×2 (09:00→20:27)
[2017-06-28] MEDS: metFORMIN HCL 500 MG TAB PO SCH ×2 (09:25→18:32)
[2017-06-28] MEDS: PROCHLORPERAZINE INJ 10 MG/2 ML VIAL IV PUSH PRN ×2 (12:32→20:13)
[2017-06-28] MEDS ORDERED: ONDANSETRON HCL 4 MG/2 ML VIAL IVP PRN (14:45)
[2017-06-28] MEDS: NS + KCL 20 MEQ INJ 1,000 ML IV SCH (15:06)
--- NOTE | 2017-06-28 15:13 | HHI.PR ---
Subjective Remarks Pt developed recurrent nausea and vomiting today. Did NOT respond to zofran 4mg. Pt also received compazine with improvement but not complete resolution of n/v. Objective Vitals Vital Signs Date Time Temp Pulse Resp B/P (MAP) Pulse Ox O2 Delivery O2 Flow Rate FiO2 06/28/17 12:00 96.6 82 22 182/84 (116) 92 06/28/17 08:00 96.9 84 20 140/78 (98) 98 06/28/17 04:10 96.8 81 16 117/73 (88) 98 06/28/17 00:15 97.2 83 17 112/67 (82) 100 06/27/17 22:00 96 06/27/17 20:30 97.0 84 16 136/81 (99) 100 06/27/17 19:50 97 06/27/17 17:00 84 21 111/74 (86) 06/27/17 16:00 97.5 82 17 114/72 (86) Result Diagram: 06/28/17 0718 06/28/17 0718 Imaging Last Impressions Chest X-Ray 06/27/17 0000 Signed Impressions: Service Date/Time: June 09:46 - CONCLUSION: 1. No acute cardiopulmonary disease. Francis Woodson MD Abdomen/Pelvis CT 06/26/17 0000 Signed Impressions: Service Date/Time: Monday, June 26, 2017 19:05 - CONCLUSION: Essentially unremarkable study. Sydni Schaefer MD Objective Remarks GENERAL: This is a well-nourished, well-developed patient, in no apparent distress. CARDIOVASCULAR: Regular rate and rhythm without murmurs, gallops, or rubs. RESPIRATORY: Clear to auscultation. Breath sounds equal bilaterally. No wheezes , rales, or rhonchi. GASTROINTESTINAL: Abdomen soft, non-tender, nondistended. Normal active bowel sounds MUSCULOSKELETAL: Extremities without clubbing, cyanosis, or edema. NEURO: Alert & Oriented x4 to person, place, time, situation. Moves all ext x4 A/P Problem List: (1) Nausea & vomiting ICD Codes: R11.2 - Nausea & vomiting Status: Resolved Plan: - pt admitted with c/o n/v, hyperglycemia, possible DKA - blood sugar improved - pt with recurrent n/v (06/28) - Pt has h/o gastroparesis - CT Abd/pelvis (06/28) - obtain STAT lipase - repeat CBC, BMP, LFTs in AM - IVFs - compazine prn - DVT prophylaxis - trial of Erythromycin EC 250mg TID AC, IV erythromycin is currently NOT available review of Jan 2015 Hospitalization - EGD on 01/27/15 --> severe distal esophagitis with linear erosions from severe vomiting, hemorrhagic gastritis just below the GE junction from the retching, mild antral gastritis, mild antral gastritis, no evidence of mechanical obstruction in the stomach or duodenum. - GES (01/29/15) - findings c/w gastroparesis - NO improvement with reglan - pt clinically improved on EES (2) DKA (diabetic ketoacidoses) ICD Codes: E13.10 - Other specified diabetes mellitus with ketoacidosis without coma Status: Resolved Plan: - pt off insulin drip (3) Leukocytosis ICD Codes: D72.829 - Elevated white blood cell count, unspecified Plan: - may be related to DKA - No nidus of infection - UA --> no infection - CXR (06/27/16) --> no infiltrate - continue zosyn for now - repeat CBC in AM (4) DM (diabetes mellitus), type 2, uncontrolled ICD Codes: E11.65 - DM (diabetes mellitus), type 2, uncontrolled Status: Acute Plan: - HgA1C 14.8 (06/27/16), 7.3 (11/2016) - Pt admits to NOT taking his DM medications - resume glucophage at 500mg BID, observe response - SSI - LDL 114 (06/28), will start statin at discharge - Pt will need f/u with [facility] PCP, Dr. Anglin, upon discharge - Pt will need outpt referal to [facility] [employer] outpt - [place] perinatal educator not available - DVT prophylaxis with SCDs Problem Qualifiers (1) DKA (diabetic ketoacidoses): Qualified Codes: E11.10 - Type 2 diabetes mellitus with ketoacidosis without coma (2) DM (diabetes mellitus), type 2, uncontrolled: Qualified Codes: E11.8 - Type 2 diabetes mellitus with unspecified complications; E11.65 - Type 2 diabetes mellitus with hyperglycemia Peter Romero DO Jun 28, 2017 15:13
[2017-06-28] MEDS: ERYTHROMYCIN EC 250 MG TABEC PO SCH (18:32)
[2017-06-28] MEDS: PANTOPRAZOLE SODIUM 40 MG VIAL IV PUSH SCH (20:13)
[2017-06-29] VITALS: PULSE 82
[2017-06-29 00:35] VITALS: BP 133/81; PULSE 83; RESP 16; TEMP 96.7; O2SAT 98
[2017-06-29] MEDS: CHLORHEXIDINE GLUCONATE 2 % 1 PACK (2 CLOTHS)(taper/protocol) TOPICAL SCH (01:05)
[2017-06-29] MEDS: MEDIUM DOSE INSULIN NOVOLOG SUPPLEMENTAL SCALE SQ SCH ×4 (01:06→13:53)
[2017-06-29] MEDS: NS + KCL 20 MEQ INJ 1,000 ML IV SCH (01:06)
[2017-06-29 04:00] VITALS: PULSE 103
[2017-06-29 04:03] VITALS: BP 158/90; PULSE 96; RESP 15; TEMP 97.2; O2SAT 98
[2017-06-29 07:25] LABS: AUTOMATED NEUTROPHIL # 6.8 TH/MM3 (1.8-7.7); BASOPHIL # 0.1 TH/MM3 (0-0.2); BASOPHIL % 0.7 % (0.0-2.0); EOSINOPHIL % 0.3 % (0.0-4.0); HEMOGLOBIN 11.5 GM/DL (13.0-17.0); LYMPH % 17.6 % (9.0-44.0); LYMPHOCYTE # 1.7 TH/MM3 (1.0-4.8); MEAN CELL VOLUME 83.8 FL (80.0-100.0); MEAN CORPUSCULAR HEMOGLOBIN 28.3 PG (27.0-34.0); MEAN CORPUSCULAR HGB CONC 33.8 % (32.0-36.0); MEAN PLATELET VOLUME 8.8 FL (7.0-11.0); MONO % 8.9 % (0.0-8.0); MONOCYTE # 0.8 TH/MM3 (0-0.9); NEUT % 72.5 % (16.0-70.0); PLATELET COUNT 276 TH/MM3 (150-450); RED BLOOD COUNT 4.06 MIL/MM3 (4.50-5.90); RED CELL DISTRIBUTION WIDTH 12.7 % (11.6-17.2); WHITE BLOOD COUNT 9.4 TH/MM3 (4.0-11.0)
[2017-06-29 07:27] VITALS: BP 160/82; PULSE 93; RESP 16; TEMP 98; O2SAT 98
[2017-06-29 07:56] LABS: ALBUMIN 2.6 GM/DL (3.4-5.0); BICARBONATE 22.4 MEQ/L (21.0-32.0); CALCIUM 8.2 MG/DL (8.5-10.1); CREATININE 0.56 MG/DL (0.60-1.30); DIRECT BILIRUBIN ADULT 0.1 MG/DL (0.0-0.2); INDIRECT BILIRUBIN 0.2 MG/DL (0.0-0.8); MAGNESIUM 1.8 MG/DL (1.5-2.5); TOTAL BILIRUBIN ADULT 0.3 MG/DL (0.2-1.0); TOTAL PROTEIN 6.5 GM/DL (6.4-8.2)
[2017-06-29] MEDS: ERYTHROMYCIN EC 250 MG TABEC PO SCH ×2 (08:00→12:00)
[2017-06-29] MEDS: metFORMIN HCL 500 MG TAB PO SCH (08:08)
[2017-06-29] MEDS: DOCUSATE SODIUM 50 MG/SENNA 8.6 MG TAB PO SCH (08:08)
[2017-06-29] MEDS: SODIUM CHLORIDE 0.9% FLUSH 10 ML FLUSH IV FLUSH SCH (09:00)
[2017-06-29] MEDS ORDERED: METF500 PO (11:34)
[2017-06-29] MEDS ORDERED: ERYT250 PO (11:34)
--- NOTE | 2017-06-29 11:38 | HHI.DS ---
Discharge Summary Admission Date Jun 26, 2017 at 18:38 Discharge Date: Jun 29, 2017 Admitting Diagnosis mild DKA (1) Nausea & vomiting Diagnosis: Principal ICD Codes: R11.2 - Nausea & vomiting Status: Resolved (2) DKA (diabetic ketoacidoses) Diagnosis: Principal ICD Codes: E13.10 - Other specified diabetes mellitus with ketoacidosis without coma Status: Resolved (3) Leukocytosis Diagnosis: Principal ICD Codes: D72.829 - Elevated white blood cell count, unspecified (4) DM (diabetes mellitus), type 2, uncontrolled Diagnosis: Principal ICD Codes: E11.65 - DM (diabetes mellitus), type 2, uncontrolled Status: Acute Consultants none Procedures none Brief History 37 y/o black male with history of diabetes was on metformin but non complaint and stopped med months ago ,previous to that was on Lantus ,patient states has been doing well but has had gastroparesis symptoms and chronic diarrhea ,came to er with persistent vomit and had blood glucose at 400 with mild DKA on lab work and will be admitted start on insulin drip and IV fluid ,patient also has elevated WBC count ,denies fever. CBC/BMP: 06/29/17 0509 06/29/17 0509 Significant Findings Laboratory Tests Test 06/26/17 14:17 06/26/17 16:25 06/26/17 16:39 06/26/17 19:29 White Blood Count 24.3 TH/MM3 (4.0-11.0) Neutrophils % (Manual) 79 % (16-70) Band Neutrophils % 16 % (0-6) Lymphocytes % 3 % (9-44) Neutrophils # (Manual) 23.1 TH/MM3 (1.8-7.7) Blood Urea Nitrogen 25 MG/DL (7-18) Random Glucose 480 MG/DL (74-106) Carbon Dioxide Level 20.0 MEQ/L (21.0-32.0) Lipase 58 U/L (73-393) B-Hydroxybutyrate 5.10 MMOL/L (0.00-0.39) Venous Blood pH 7.29 (7.360-7.400) Venous Blood Partial Pressure CO2 39 mmHg (44-48) Venous Blood Partial Pressure O2 47 mmHg (35-40) Venous Blood HCO3 18 mmol/L (22-26) Venous Blood Base Excess -7.1 mmol/L (-2-2) Urine Protein 30 mg/dL (NEG-TRACE) Urine Glucose (UA) 1000 mg/dL (NEG) Urine Ketones 80 mg/dL (NEG) Urine Occult Blood TRACE (NEG) Test 06/26/17 21:20 06/27/17 00:17 06/27/17 04:23 06/27/17 11:33 Blood Urea Nitrogen 23 MG/DL (7-18) 22 MG/DL (7-18) 22 MG/DL (7-18) Random Glucose 177 MG/DL (74-106) 150 MG/DL (74-106) 211 MG/DL (74-106) Calcium Level 8.0 MG/DL (8.5-10.1) 7.9 MG/DL (8.5-10.1) 8.3 MG/DL (8.5-10.1) Phosphorus Level 1.7 MG/DL (2.5-4.9) 2.1 MG/DL (2.5-4.9) Sodium Level 146 MEQ/L (136-145) Chloride Level 114 MEQ/L (98-107) 113 MEQ/L (98-107) 109 MEQ/L (98-107) Hemoglobin A1c 14.8 % (4.3-6.0) White Blood Count 20.7 TH/MM3 (4.0-11.0) Red Blood Count 3.95 MIL/MM3 (4.50-5.90) Hemoglobin 11.3 GM/DL (13.0-17.0) Hematocrit 33.5 % (39.0-51.0) Neutrophils % (Manual) 87 % (16-70) Lymphocytes % 5 % (9-44) Neutrophils # (Manual) 19.0 TH/MM3 (1.8-7.7) B-Hydroxybutyrate 2.26 MMOL/L (0.00-0.39) 1.36 MMOL/L (0.00-0.39) Test 06/27/17 16:47 06/28/17 07:18 06/29/17 05:09 Blood Urea Nitrogen 21 MG/DL (7-18) Random Glucose 130 MG/DL (74-106) 169 MG/DL (74-106) 129 MG/DL (74-106) Albumin 2.5 GM/DL (3.4-5.0) 2.6 GM/DL (3.4-5.0) Calcium Level 8.1 MG/DL (8.5-10.1) 8.1 MG/DL (8.5-10.1) 8.2 MG/DL (8.5-10.1) Chloride Level 111 MEQ/L (98-107) 109 MEQ/L (98-107) 108 MEQ/L (98-107) Red Blood Count 3.96 MIL/MM3 (4.50-5.90) 4.06 MIL/MM3 (4.50-5.90) Hemoglobin 11.5 GM/DL (13.0-17.0) 11.5 GM/DL (13.0-17.0) Hematocrit 33.4 % (39.0-51.0) 34.0 % (39.0-51.0) Neutrophils (%) (Auto) 80.1 % (16.0-70.0) 72.5 % (16.0-70.0) Neutrophils # (Auto) 8.3 TH/MM3 (1.8-7.7) LDL Cholesterol 114 MG/DL (0-99) Lipase 44 U/L (73-393) Monocytes (%) (Auto) 8.9 % (0.0-8.0) Creatinine 0.56 MG/DL (0.60-1.30) Imaging Last Impressions Chest X-Ray 06/27/17 0000 Signed Impressions: Service Date/Time: June 09:46 - CONCLUSION: 1. No acute cardiopulmonary disease. Francis Woodson MD Abdomen/Pelvis CT 06/26/17 0000 Signed Impressions: Service Date/Time: Monday, June 26, 2017 19:05 - CONCLUSION: Essentially unremarkable study. Sydni Schaefer MD PE at Discharge GENERAL: This is a well-nourished, well-developed patient, in no apparent distress. CARDIOVASCULAR: Regular rate and rhythm without murmurs, gallops, or rubs. RESPIRATORY: Clear to auscultation. Breath sounds equal bilaterally. No wheezes , rales, or rhonchi. GASTROINTESTINAL: Abdomen soft, non-tender, nondistended. Normal active bowel sounds MUSCULOSKELETAL: Extremities without clubbing, cyanosis, or edema. NEURO: Alert & Oriented x4 to person, place, time, situation. Moves all ext x4 Hospital Course Nausea & vomiting - pt admitted with c/o n/v, hyperglycemia, possible DKA - blood sugar improved - pt with recurrent n/v (06/28) - Pt has h/o gastroparesis - CT Abd/pelvis (06/28) - obtain STAT lipase - repeat CBC, BMP, LFTs in AM - IVFs - compazine prn - DVT prophylaxis - N/V improved after trial of Erythromycin EC 250mg TID AC review of Jan 2015 Hospitalization - EGD on 01/27/15 --> severe distal esophagitis with linear erosions from severe vomiting, hemorrhagic gastritis just below the GE junction from the retching, mild antral gastritis, mild antral gastritis, no evidence of mechanical obstruction in the stomach or duodenum. - GES (01/29/15) - findings c/w gastroparesis - NO improvement with reglan - pt clinically improved on EES DKA (diabetic ketoacidoses) Resolved - pt off insulin drip Leukocytosis - may be related to DKA - No nidus of infection - UA --> no infection - CXR (06/27/16) --> no infiltrate - continue zosyn for now - repeat CBC in AM, WBC 06/29/17 9.4 DM (diabetes mellitus), type 2, uncontrolled - HgA1C 14.8 (06/27/16), 7.3 (11/2016) - Pt admits to NOT taking his DM medications - resume Glucophage at 500mg BID, observe response. Glucophage increased to 1000mg PO BID at DC - SSI while in hospital - patient educated on the importance of staying on his diabetic diet and checking glucose - new glucose monitoring kit provided - LDL 114 (06/28), will start statin at discharge - Pt will need f/u with CP PCP, Dr. Anglin, upon discharge - Pt will need outpt referral to [facility] [employer] outpt - [place] early childhood special educator not available - C peptide ordered prior to DC. Patient to follow up with PCP on results of C peptide - DVT prophylaxis with SCDs HTN -Patient given prescription for lisinopril 5mg daily at time of DC -Patient to follow up with PCP for further BP monitoring and management Pt Condition on Discharge: Stable Discharge Disposition: Discharge Home Discharge Instructions DIET: Follow Instructions for: Diabetic Diet Activities you can perform: Regular-No Restrictions Follow up Referrals: Diabetic Education - 1 Week with [facility] PCP Follow-up - [address] Zaira Anglin New Medications: Atorvastatin (Atorvastatin) 10 Mg Tab 10 MG PO HS for Cholesterol Management, #30 TAB 0 Refills Glucose Blood Test Strips (Jolynn Contour Next Blood Test Strips) 1 Alaina Alaina STRIP .ROUTE DIRECTED for blood suger monitoring, #100 Lancets (Lancets 28G) 1 Mis Mis STRIP .ROUTE DIRECTED for Blood Sugar Management, #100 0 Refills Lisinopril (Lisinopril) 5 Mg Tab 5 MG PO DAILY for Blood Pressure Management, #30 TAB [address] (Umang-Tab DR) 250 Mg Tabdr 250 MG PO TIDAC for gastroparesis, #90 TAB 0 Refills Metformin (Glucophage) 500 Mg Tab 1000 MG PO BIDPC for blood sugar, #60 TAB 0 Refills Additional Information Patient examined. Assessment and plan formulated with Yvonne Tobias PA-C. I agree with the above. Yvonne Tobias Jun 29, 2017 11:38 Peter Romero DO Jul 04, 2017 00:26
[2017-06-29] MEDS ORDERED: ATOR10TA15 PO (11:42)
[2017-06-29 12:00] VITALS: BP 158/88; PULSE 84; RESP 16; TEMP 97.2; O2SAT 99
[2017-06-29] MEDS ORDERED: LISI-519 PO (16:26)
[2017-06-29] MEDS ORDERED: LANCETS (16:59)
[2017-06-29] MEDS ORDERED: GLUCTES27 (16:59)
== END 2017-06-29 18:05 | disposition home or self-care (01) | DRG 639 ==
LOC: NEPC 13:50 → NEDA 18:38 → HIMW 21:15 → N06B 06-27 20:24
PROVIDERS: ADMIT Hospitalist; ATTEND Hospitalist
DX: E11.10 Type 2 diabetes mellitus with ketoacidosis without coma (principal); K31.84 Gastroparesis; I10 Essential (primary) hypertension; Z91.14 Patient's other noncompliance with medication regimen; E11.43 Type 2 diabetes mellitus with diabetic autonomic (poly)neuropathy; D72.829 Elevated white blood cell count, unspecified
CPT/HCPCS: 71045; 74176; 80048; 80053; 80061; 80076; 81001; 82010; 82805; 82948; 83036; 83690; 83735; 84100; 84681; 85007; 85025; 85027; 87040; 87641; 96361; 96374; C9113; J0780; J1815; J1817; J2405; J2543; J3480; J7030; J7042

== ENCOUNTER 2017-11-08 07:14 | Emergency (ER) | payer OTHER ==
[~2017-11-08 07:14] MED LIST changes: +ATOR10TA15 PO; -GLIP5 PO; -GLUCTAB PO; +GLUCTES27; +LANCETS; +LISI-519 PO; +METF500 PO; -OMPR20CCR PO; -PROC10TA4 PO; -ZOFR4TAB3 PO
[2017-11-08 07:16] VITALS: BP 175/101; PULSE 75; RESP 14; O2SAT 100
[2017-11-08] MEDS ORDERED: TRAD5TAB PO (07:30)
[2017-11-08] MEDS ORDERED: EMPA1TAB3 PO (07:30)
[2017-11-08] MEDS ORDERED: SODIUM CHLORIDE 0.9% FLUSH 10 ML FLUSH IV FLUSH PRN (08:00)
[2017-11-08] MEDS ORDERED: METOCLOPRAMIDE HCL 10 MG/2 ML VIAL IV PUSH ONE (08:00)
[2017-11-08] MEDS ORDERED: SODIUM CHLOR 0.9% 1000 ML INJ 1,000 ML IV ONE (08:00)
[2017-11-08 08:07] VITALS: RESP 16
[2017-11-08 08:13] LABS: AUTOMATED NEUTROPHIL # 10.1 TH/MM3 (1.8-7.7); BASOPHIL # 0.1 TH/MM3 (0-0.2); BASOPHIL % 0.6 % (0.0-2.0); EOSINOPHIL # 0.1 TH/MM3 (0-0.4); EOSINOPHIL % 0.8 % (0.0-4.0); HEMATOCRIT 42.2 % (39.0-51.0); HEMOGLOBIN 14.1 GM/DL (13.0-17.0); LYMPH % 10.6 % (9.0-44.0); LYMPHOCYTE # 1.3 TH/MM3 (1.0-4.8); MEAN CELL VOLUME 83.4 FL (80.0-100.0); MEAN CORPUSCULAR HGB CONC 33.5 % (32.0-36.0); MEAN PLATELET VOLUME 8.5 FL (7.0-11.0); MONO % 7.4 % (0.0-8.0); MONOCYTE # 0.9 TH/MM3 (0-0.9); NEUT % 80.6 % (16.0-70.0); PLATELET COUNT 201 TH/MM3 (150-450); RED BLOOD COUNT 5.05 MIL/MM3 (4.50-5.90); RED CELL DISTRIBUTION WIDTH 13.4 % (11.6-17.2); WHITE BLOOD COUNT 12.6 TH/MM3 (4.0-11.0)
[2017-11-08 08:30] LABS: BILIRUBIN, URINE NEG (NEG); BLOOD, URINE SMALL (NEG); GLUCOSE,URINE 1000 mg/dL (NEG); KETONE, URINE 10 mg/dL (NEG); NITRITE,URINE NEG (NEG); PH, URINE 6.5 (5.0-8.5); URINE COLOR LIGHT-YELLOW (YELLW/STRAW); URINE LEUKOCYTE ESTERASE NEG (NEG)
--- NOTE | 2017-11-08 08:34 | PD ---
HPI Chief Complaint: GI Complaint Time Seen by Provider: 07:57 Travel History International Travel<30 days: No Contact w/Intl Traveler<30days: No Traveled to known affect area: No History of Present Illness HPI pt is a 37 y.o male with a hx of DMII and HTN who presents to the ED with a cc of vomiting. Pt states that last night around 3 am he started vomiting. vomiting started 3 hrs after eating " buttery popcorn". has vomited X7 since. Reports that the content is just what he had that day. Denies any hematemesis or presence of bile in vomitus. Also reports some loose stool that started around the same time. Denies any mucus or blood in his stool. Has had 3 loose stool since sxs began. Denies any abdominal pain, fever, urinary changes, hematuria, SOB, lightheadedness, chills, feeling jittery, or recent weight loss. Also denies any sick contact. Modifying Factors: None Associated Signs & Symptoms: Vomiting, nausea, abdominal discomfort Risk Factors: Diabetes PFSH Past Medical History Asthma: No Blood Disorders: No Anxiety: No Depression: No Heart Rhythm Problems: No Cancer: No Cardiovascular Problems: No High Cholesterol: Yes Chemotherapy: No Chest Pain: No Congestive Heart Failure: No COPD: No Diabetes: Yes Patient Takes Glucophage: No Diminished Hearing: No Endocrine: Yes Genitourinary: No Hypertension: Yes Immune Disorder: No Musculoskeletal: No Neurologic: No Psychiatric: No Reproductive: No Respiratory: No Radiation Therapy: No Sleep Apnea: No Thyroid Disease: No Tetanus Vaccination: Unknown Influenza Vaccination: Yes Social History Alcohol Use: No Tobacco Use: No Substance Use: No Allergies-Medications (Allergen,Severity, Reaction): Coded Allergies: No Known Allergies (Unverified Allergy, Unknown, 06/26/17) Reported Meds & Prescriptions Reported Meds & Active Scripts Active Lisinopril 5 Mg Tab 5 Mg PO DAILY Atorvastatin (Atorvastatin Calcium) 10 Mg Tab 10 Mg PO HS Reported Jardiance (Empagliflozin) 25 Mg Tab 25 Mg PO DAILY Tradjenta (Linagliptin) 5 Mg Tab 5 Mg PO DAILY Review of Systems Except as stated in HPI: all other systems reviewed are Neg Physical Exam Narrative GENERAL: well developed, well nourished male in mild distress SKIN: Warm and dry. HEAD: Atraumatic. Normocephalic. EYES: Pupils equal and round. No scleral icterus. No injection or drainage. ENT: No nasal bleeding or discharge. Mucous membranes pink and moist. NECK: Trachea midline. No JVD. Supple. CARDIOVASCULAR: Regular rate and rhythm. RESPIRATORY: No accessory muscle use. Clear to auscultation. Breath sounds equal bilaterally. GASTROINTESTINAL: Abdomen soft, epigastric tenderness without guarding or rebound, nondistended. Hepatic and splenic margins not palpable. MUSCULOSKELETAL: Extremities without clubbing, cyanosis, or edema. No obvious deformities. NEUROLOGICAL: Awake and alert. No obvious cranial nerve deficits. Motor grossly within normal limits. Five out of 5 muscle strength in the arms and legs. Normal speech. PSYCHIATRIC: Appropriate mood and affect; insight and judgment normal. Data Data Last Documented VS Vital Signs Date Time Temp Pulse Resp B/P (MAP) Pulse Ox O2 Delivery O2 Flow Rate FiO2 11/08/17 08:07 16 11/08/17 07:16 75 175/101 (125) 100 Orders Orders Complete Blood Count With Diff (11/08/17 07:54) Comprehensive Metabolic Panel (11/08/17 07:54) Lipase (11/08/17 07:54) Urinalysis - C+S If Indicated (11/08/17 07:54) Iv Access Insert/Monitor (11/08/17 07:54) Ecg Monitoring (11/08/17 07:54) Oximetry (11/08/17 07:54) Sodium Chloride 0.9% Flush (Ns Flush) (11/08/17 08:00) Sodium Chlor 0.9% 1000 Ml Inj (Ns 1000 M (11/08/17 08:00) Metoclopramide Inj (Reglan Inj) (11/08/17 08:00) Beta Hydroxybutyrate (Acetone) (11/08/17 07:59) Ct Abd/Pel W Iv Contrast(Rout) (11/08/17 09:38) Iohexol 350 Inj (Omnipaque 350 Inj) (11/08/17 12:08) Insulin Human Regular Inj (Novolin R Inj (11/08/17 12:30) Ed Discharge Order (11/08/17 12:27) Labs Laboratory Tests Test 11/08/17 07:45 White Blood Count 12.6 TH/MM3 Red Blood Count 5.05 MIL/MM3 Hemoglobin 14.1 GM/DL Hematocrit 42.2 % Mean Corpuscular Volume 83.4 FL Mean Corpuscular Hemoglobin 28.0 PG Mean Corpuscular Hemoglobin Concent 33.5 % Red Cell Distribution Width 13.4 % Platelet Count 201 TH/MM3 Mean Platelet Volume 8.5 FL Neutrophils (%) (Auto) 80.6 % Lymphocytes (%) (Auto) 10.6 % Monocytes (%) (Auto) 7.4 % Eosinophils (%) (Auto) 0.8 % Basophils (%) (Auto) 0.6 % Neutrophils # (Auto) 10.1 TH/MM3 Lymphocytes # (Auto) 1.3 TH/MM3 Monocytes # (Auto) 0.9 TH/MM3 Eosinophils # (Auto) 0.1 TH/MM3 Basophils # (Auto) 0.1 TH/MM3 CBC Comment DIFF FINAL Differential Comment Urine Color LIGHT-YELLOW Urine Turbidity CLEAR Urine pH 6.5 Urine Specific [place] 1.023 Urine Protein 100 mg/dL Urine Glucose (UA) 1000 mg/dL Urine Ketones 10 mg/dL Urine Occult Blood SMALL Urine Nitrite NEG Urine Bilirubin NEG Urine Urobilinogen LESS THAN 2.0 MG/DL Urine Leukocyte Esterase NEG Urine RBC 5 /hpf Urine WBC 3 /hpf Microscopic Urinalysis Comment CULT NOT INDICATED Blood Urea Nitrogen 15 MG/DL Creatinine 0.79 MG/DL Random Glucose 209 MG/DL Total Protein 8.1 GM/DL Albumin 3.9 GM/DL Calcium Level 8.8 MG/DL Alkaline Phosphatase 56 U/L Aspartate Amino Transf (AST/SGOT) 31 U/L Alanine Aminotransferase (ALT/SGPT) 45 U/L Total Bilirubin 0.4 MG/DL Sodium Level 139 MEQ/L Potassium Level 3.6 MEQ/L Chloride Level 106 MEQ/L Carbon Dioxide Level 23.1 MEQ/L Anion Gap 10 MEQ/L Estimat Glomerular Filtration Rate 132 ML/MIN Lipase 57 U/L B-Hydroxybutyrate 0.73 MMOL/L MDM Medical Decision Making Medical Screen Exam Complete: Yes Emergency Medical Condition: Yes Medical Record Reviewed: Yes Interpretation(s) Laboratory Tests Test 11/08/17 07:45 White Blood Count 12.6 TH/MM3 (4.0-11.0) Neutrophils (%) (Auto) 80.6 % (16.0-70.0) Neutrophils # (Auto) 10.1 TH/MM3 (1.8-7.7) Urine Protein 100 mg/dL (NEG-TRACE) Urine Glucose (UA) 1000 mg/dL (NEG) Urine Ketones 10 mg/dL (NEG) Urine Occult Blood SMALL (NEG) Urine RBC 5 /hpf (0-3) Random Glucose 209 MG/DL (74-106) Lipase 57 U/L (73-393) B-Hydroxybutyrate 0.73 MMOL/L (0.00-0.39) Differential Diagnosis Gastritis versus gastroenteritis versus pancreatitis versus dehydration versus cholecystitis Narrative Course Lab work shows leukocytosis. The rest of the lab work did show some hyperglycemia. IV fluids was given in the ER. Insulin was given in the ER and Reglan was given for nausea and vomiting in the ER. Anion gap was normal. His ketones are mildly elevated and I suspect that this is due to dehydration, and IV fluids had been given. Vital signs are stable. CAT scan was ordered for further evaluation and did not show any signs of acute intra-abdominal processes. At this point, my plan would be to release the patient with follow- up to primary care physician. Return for worsening in symptoms as necessary. The plan has been discussed with him and he states understanding. Diagnosis Primary Impression: Nausea & vomiting Med/Other Pt SpecificInfo: Prescription(s) given Scripts Metoclopramide (Reglan) 10 Mg Tab 10 MG PO QID Y for NAUSEA OR VOMITING, #20 TAB 0 Refills Prov: Jamey Borges MD 11/08/17 Disposition: 01 DISCHARGE HOME Condition: Stable Jamey Borges MD November 08, 2017 08:34
[2017-11-08 08:40] LABS: ALKALINE PHOSPHATASE 56 U/L (45-117); BLOOD UREA NITROGEN 15 MG/DL (7-18); TOTAL BILIRUBIN ADULT 0.4 MG/DL (0.2-1.0); TOTAL PROTEIN 8.1 GM/DL (6.4-8.2)
[2017-11-08 08:48] LABS: ALBUMIN 3.9 GM/DL (3.4-5.0); ALT (GPT) 45 U/L (12-78); AST (GOT) 31 U/L (15-37); BICARBONATE 23.1 MEQ/L (21.0-32.0); CALCIUM 8.8 MG/DL (8.5-10.1); CHLORIDE 106 MEQ/L (98-107); CREATININE 0.79 MG/DL (0.60-1.30); GLOMERULAR FILTRATION RATE 132 ML/MIN (>89); GLUCOSE,RANDOM 209 MG/DL (74-106); SODIUM (NA) 139 MEQ/L (136-145)
[2017-11-08] MEDS ORDERED: IOHEXOL 350 MG/ML 10 ML VIAL (for RAD DIAG) IVCONTRAST ONE (12:08)
--- NOTE | 2017-11-08 12:15 | RADRPT ---
EXAM DATE/TIME: 11/08/2017 11:59 [facility] COMPARISON: CT ABDOMEN & PELVIS W/O CONTRAST, June 26, 2017, 19:05. CT ABDOMEN & PELVIS W CONTRAST, January, 19:03. INDICATIONS : Abdominal pain with nausea, vomiting and diarrhea IV CONTRAST: 97 cc Omnipaque 350 (iohexol) IV ORAL CONTRAST: No oral contrast ingested. RADIATION DOSE: 6.64 CTDIvol (mGy) Dose Comments: MEDICAL HISTORY : Hypertension. Diabetes mellitus type 2. SURGICAL HISTORY : Lasik ENCOUNTER: Initial ACUITY: 1 day PAIN SCALE: 3/10 LOCATION: Abdomen/pelvis TECHNIQUE: Volumetric scanning of the abdomen and pelvis was performed. Using automated exposure control and ad justment of the mA and/or kV according to patient size, radiation dose was kept as low as reasonably achievable to obtain optimal diagnostic quality images. DICOM format image data is available electro nically for review and comparison. FINDINGS: LOWER LUNGS: The visualized lower lungs are clear. LIVER: Homogeneous density without lesion. There is no dilation of the biliary tree. No calcified gallston es. SPLEEN: Normal size without lesion. PANCREAS: Within normal limits. KIDNEYS: Normal in size and shape. There is no mass, stone or hydronephrosis. ADRENAL GLANDS: Within normal limits. VASCULAR: There is no aortic aneurysm. BOWEL/MESENTERY: The stomach, small bowel, and colon demonstrate no acute abnormality. There is no free intraperitone al air or fluid. ABDOMINAL WALL: Within normal limits. RETROPERITONEUM: There is no lymphadenopathy. BLADDER: No wall thickening or mass. REPRODUCTIVE: Within normal limits. INGUINAL: There is no lymphadenopathy or hernia. MUSCULOSKELETAL: Within normal limits for patient age. CONCLUSION: No acute inflammatory process. Romeo Mijares MD on November 08, 2017 at 12:13 Board Certified Radiologist. This report was verified electronically.
[2017-11-08] MEDS ORDERED: INSULIN HUMAN REGULAR 1,000 UNITS/10 ML VIAL IV PUSH ONE (12:30)
[2017-11-08] MEDS ORDERED: REGL10TA5 PO (12:34)
== END 2017-11-08 12:57 | disposition home or self-care (01) ==
LOC: NEPC 07:14
DX: R11.2 Nausea with vomiting, unspecified (principal); E78.00 Pure hypercholesterolemia, unspecified; E11.65 Type 2 diabetes mellitus with hyperglycemia; I10 Essential (primary) hypertension; Z79.84 Long term (current) use of oral hypoglycemic drugs
CPT/HCPCS: 74177; 80053; 81001; 82010; 83690; 85025; 96361; 96374; 96375; 99284; J1815; J2765; J7030; Q9967